=== PATIENT | female | born 1985 | race Caucasian/White ===

== ENCOUNTER 2018-05-03 23:31 | Emergency (ER) | payer SELFPAY ==
[2018-05-04 00:16] LABS: Absolute Lymphocytes (CBC) 2.6 K/uL (0.7-4.9); Absolute Monocytes 0.5 K/uL (0.1-1.3); Absolute Neutrophil 5.2 K/uL (1.8-8.0); Basophils % 0.5 % (0-1.3); Eosinophils % 0.8 % (0-4.4); Hematocrit 36.6 % (36.0-45.0); Lymphocytes % 31.6 % (15.3-44.8); MCH 31.6 pg (27.0-35.0); MCV 92.2 fL (80-100); MPV 8.7 fL (7.6-11.3); Monocytes % 5.5 % (3.3-12.3); RBC Red Blood Cell Count 3.97 M/uL (3.86-4.86)
[2018-05-04 00:20] LABS: Protime INR 0.95
[2018-05-04 00:29] LABS: ALT/SGPT 16 U/L (12-78); AST/SGOT 9 U/L (15-37); Albumin 3.7 g/dL (3.4-5.0); Alkaline Phosphatase 49 U/L (45-117); BUN Blood Urea Nitrogen 9 mg/dL (7-18); Bicarbonate 25 mmol/L (21-32); Bilirubin Direct < 0.1 mg/dL (0-0.2); Bilirubin Total 0.2 mg/dL (0.2-1.0); CKMB Creatine Kinase MB < 1.0 ng/mL (0.3-3.6); Creatine Phosphokinase 65 U/L (26-192); Glucose Level 91 mg/dL (74-106); NT PRO-BNP 120 pg/mL (<125); Potassium 3.6 mmol/L (3.5-5.1); Protein, Total 7.1 g/dL (6.4-8.2); Sodium Level 141 mmol/L (136-145)
[2018-05-04] MEDS ORDERED: KETOROLAC 30 MG/ML INJ ONE (00:39)
--- NOTE | 2018-05-04 01:22 | EDPHYS ---
Physician Documentation [facility] Name: Lavonne Parker Age: 32 yrs Sex: Female : 1985 Arrival Date: 05/03/2018 Time: 23:34 Bed 15 Private MD: ED Physician Sushil Varela HPI: 05/04 00:53 This 32 yrs old Female presents to ER via Ambulatory with complaints of Chest tw4 Pain, L ARM PAIN. 00:53 The patient or guardian reports chest pain that is located primarily in the anterior tw4 chest wall. The pain radiates to the left arm. Associated signs and symptoms: Pertinent positives: shortness of breath. The chest pain is described as aching. Duration: The patient or guardian reports a single episode, that is now resolved. Modifying factors: The symptoms are alleviated by nothing. the symptoms are aggravated by nothing. Severity of pain: At its worst the pain was moderate in the emergency department the pain is unchanged. The patient has not experienced similar symptoms in the past. 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 - Social history:: Smoking status: Patient uses tobacco products, smokes one pack cigarettes per day. - Ebola Screening: : No symptoms or risks identified at this time. ROS: 05/04 00:53 Constitutional: Negative for fever, chills, and weight loss, Eyes: Negative for injury, tw4 pain, redness, and discharge, Respiratory: Negative for shortness of breath, cough, wheezing, and pleuritic chest pain, Abdomen/GI: Negative for abdominal pain, nausea, vomiting, diarrhea, and constipation, Back: Negative for injury and pain, MS/Extremity: Negative for injury and deformity, Skin: Negative for injury, rash, and discoloration, Neuro: Negative for headache, weakness, numbness, tingling, and seizure. Cardiovascular: Positive for chest pain, Negative for edema, orthopnea, palpitations, paroxysmal nocturnal dyspnea. Exam: 00:53 Constitutional: This is a well developed, well nourished patient who is awake, alert, tw4 and in no acute distress. Head/Face: Normocephalic, atraumatic. Chest/axilla: Normal chest wall appearance and motion. Nontender with no deformity. No lesions are appreciated. Respiratory: Lungs have equal breath sounds bilaterally, clear to auscultation and percussion. No rales, rhonchi or wheezes noted. No increased work of breathing, no retractions or nasal flaring. Abdomen/GI: Soft, non-tender, with normal bowel sounds. No distension or tympany. No guarding or rebound. No evidence of tenderness throughout. Back: No spinal tenderness. No costovertebral tenderness. Full range of motion. MS/ Extremity: Pulses equal, no cyanosis. Neurovascular intact. Full, normal range of motion. Neuro: Awake and alert, GCS 15, oriented to person, place, time, and situation. Cranial nerves II-XII grossly intact. Motor strength 5/5 in all extremities. Sensory grossly intact. Cerebellar exam normal. Normal gait. Psych: Awake, alert, with orientation to person, place and time. Behavior, mood, and affect are within normal limits. 00:53 Cardiovascular: Regular rate and rhythm with a normal S1 and S2. No gallops, murmurs, or rubs. Normal PMI, no JVD. No pulse deficits. Vital Signs: 05/03 23:44 BP 130 / 86; Pulse 85; Resp 13; Temp 98.7(O); Pulse Ox 99% on R/A; Weight 54.43 kg; lp1 Height 4 ft. 11 in. (149.86 cm); Pain 7/10; 05/04 00:30 BP 110 / 68; Pulse 59; Resp 14; Pulse Ox 100% on R/A; bs1 01:25 BP 112 / 70; Pulse 61; Resp 16; Temp 98.2(O); Pulse Ox 99% on R/A; Pain 0/10; bs1 05/03 23:44 Body Mass Index 24.24 (54.43 kg, 149.86 cm) lp1 MDM: 05/03 23:41 Patient medically screened. tw4 05/04 00:53 Differential diagnosis: acute pericarditis, coronary artery disease chest wall pain, tw4 esophagitis, gastritis, gastroesophageal reflux disease (GERD), pulmonary embolus, stable angina, thoracic aortic disection. Data reviewed: vital signs, nurses notes. Data interpreted: cafeteria monitor: rhythm is normal sinus rhythm, Pulse oximetry: Interpretation: normal. Counseling: I had a detailed discussion with the patient and/or guardian regarding: the historical points, exam findings, and any diagnostic results supporting the discharge/admit diagnosis, lab results. 05/03 23:42 Order name: Basic Metabolic Panel 05/03 23:42 Order name: CBC with Diff; Complete Time: 00:31 05/04 00:31 Interpretation: Within normal limits. 05/03 23:42 Order name: Ckmb 05/03 23:42 Order name: CPK; Complete Time: 00:31 05/04 00:31 Interpretation: Within normal limits: CPK 65. 05/03 23:42 Order name: LFT's; Complete Time: 00:31 05/04 00:31 Interpretation: Normal except: AST 9. 05/03 23:42 Order name: Magnesium; Complete Time: 00:31 05/04 00:31 Interpretation: Within normal limits: MG 2.0. 05/03 23:42 Order name: NT PRO-BNP; Complete Time: 00:31 05/04 00:31 Interpretation: Within normal limits: NT PRO-BNP 120. 05/03 23:42 Order name: PT-INR; Complete Time: 00:32 05/04 00:32 Interpretation: Within normal limits: PT 11.2. 05/03 23:42 Order name: Ptt, Activated; Complete Time: 00:32 05/04 00:32 Interpretation: Within normal limits: PTT 34.3. 05/03 23:42 Order name: Troponin (emerg Dept Use Only); Complete Time: 00:32 05/04 00:32 Interpretation: Within normal limits: TROPED < 0.02. 05/03 23:42 Order name: XRAY Chest (1 view) 05/03 23:43 Order name: Basic Metabolic Panel; Complete Time: 00:31 EDMS 05/04 00:31 Interpretation: Normal except: CL 111. 05/03 23:43 Order name: CKMB Creatine Kinase MB; Complete Time: 00:32 EDAR 05/04 00:32 Interpretation: Within normal limits: CKMB < 1.0. tw4 05/04 01:02 Order name: Urine Dipstick--Ancillary (enter results) nd 05/03 23:42 Order name: EKG; Complete Time: 23:43 tw4 05/03 23:42 Order name: Cardiac monitoring; Complete Time: 23:55 tw4 05/03 23:42 Order name: EKG - Nurse/Tech; Complete Time: 23:55 tw4 05/03 23:42 Order name: IV Saline Lock; Complete Time: 23:55 tw4 05/03 23:42 Order name: Labs collected and sent; Complete Time: 23:55 tw4 05/03 23:42 Order name: O2 Per Protocol; Complete Time: 23:56 tw4 05/03 23:42 Order name: O2 Sat Monitoring; Complete Time: 23:56 tw4 05/03 23:42 Order name: Urine Dipstick-Ancillary (obtain specimen); Complete Time: 00:49 tw4 EC:21 Rate is 69 beats/min. Rhythm is regular. QRS [place] is Normal. OR interval is normal. QRS tw4 interval is normal. QT interval is normal. No Q waves. T waves are Normal. No ST changes noted. Clinical impression: Normal ECG. Interpreted by me. Reviewed by me. Administered Medications: 00:38 Drug: TORadol 30 mg Route: IVP; Site: right forearm; bs1 00:49 Follow up: Response: No adverse reaction bs1 Disposition: 05/04/18 01:20 Discharged to Home. Impression: Chest pain, unspecified. - Condition is Stable. - Discharge Instructions: Nonspecific Chest Pain, Pain Without a Known Cause. - Prescriptions for Ibuprofen 600 mg Oral Tablet - take 1 tablet by ORAL route every 6 hours As needed take with food; 30 tablet. - Medication Reconciliation Form, Thank You Letter, Antibiotic Education, Prescription Opioid Use form. - Follow up: Private Physician; When: Upon discharge from the Emergency Department; Reason: Further diagnostic work-up, Recheck today's complaints, Continuance of care. - Problem is new. - Symptoms have improved. Signatures: Dispatcher [employer] [facility] Roopa Gupta RN RN lp1 Angy Bolanos RN RN bs1 Sushil Varela MD MD tw4 Corrections: (The following items were deleted from the chart) 01:32 01:20 05/04/2018 01:20 Discharged to Home. Impression: Chest pain, unspecified. bs1 Condition is Stable. Forms are Medication Reconciliation Form, Thank You Letter, Antibiotic Education, Prescription Opioid Use. Follow up: Private Physician; When: Upon discharge from the Emergency Department; Reason: Further diagnostic work-up, Recheck today's complaints, Continuance of care. Problem is new. Symptoms have improved. tw4
--- NOTE | 2018-05-04 01:22 | ER ---
Nurse's Notes [facility] Name: Lavonne Parker Age: 32 yrs Sex: Female : 1985 Arrival Date: 05/03/2018 Time: 23:34 Bed 15 Private MD: Diagnosis: Chest pain, unspecified Presentation: 05/03 23:41 Presenting complaint: Patient states: Chest pain that began at 2130; States pain is lp1 worse when taking a deep breath, radiates to left elbow and feeling "tingling sensation"; Denies any dizziness, shortness of breath. Transition of care: patient was not received from another setting of care. Onset of symptoms was May 03, 2018 at 21:30. Risk Assessment: Do you want to hurt yourself or someone else? Patient reports no desire to harm self or others. Initial Sepsis Screen: Does the patient meet any 2 criteria? No. Patient's initial sepsis screen is negative. Does the patient have a suspected source of infection? No. Patient's initial sepsis screen is negative. Care prior to arrival: None. 23:41 Method Of Arrival: Ambulatory lp1 23:41 Acuity: FABY 3 lp1 23:41 Care prior to arrival: Medication(s) given: BC Powder. 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 - Social history:: Smoking status: Patient uses tobacco products, smokes one pack cigarettes per day. - Ebola Screening: : No symptoms or risks identified at this time. Screenin:46 Abuse screen: Denies threats or abuse. Denies injuries from another. Nutritional lp1 screening: No deficits noted. Tuberculosis screening: No symptoms or risk factors identified. Fall Risk None identified. Assessment: 23:40 General: Appears in no apparent distress. uncomfortable, slender, Behavior is calm, bs1 cooperative, appropriate for age. Pain: Complains of pain in left side of chest Pain radiates to left arm Pain began 2 hours ago. 23:40 Neuro: Level of Consciousness is awake, alert, obeys commands, Oriented to person, bs1 place, time, situation, Appropriate for age Reports tingling/pain to left arm. Denies dizziness, numbness. Cardiovascular: Reports chest pain, Denies nausea, shortness of breath, Heart tones S1 S2 present Capillary refill < 3 seconds Patient's skin is warm and dry. Respiratory: Airway is patent Trachea midline Breath sounds are clear bilaterally. GI: No signs and/or symptoms were reported involving the gastrointestinal system. : No signs and/or symptoms were reported regarding the genitourinary system. EENT: No signs and/or symptoms were reported regarding the EENT system. Derm: Skin is intact. Musculoskeletal: Circulation, motion, and sensation intact. Capillary refill < 3 seconds, Range of motion: intact in all extremities. 05/04 00:30 Reassessment: Patient appears in no apparent distress at this time. Patient and/or bs1 family updated on plan of care and expected duration. Pain level reassessed. Patient is alert, oriented x 3, equal unlabored respirations, skin warm/dry/pink. Pending lab results/xray. 01:30 Reassessment: Patient appears in no apparent distress at this time. Patient and/or bs1 family updated on plan of care and expected duration. Pain level reassessed. Patient is alert, oriented x 3, equal unlabored respirations, skin warm/dry/pink. Patient states understanding of POC/discharge instructions Patient states feeling better. Patient states symptoms have improved. Vital Signs: 05/03 23:44 BP 130 / 86; Pulse 85; Resp 13; Temp 98.7(O); Pulse Ox 99% on R/A; Weight 54.43 kg; lp1 Height 4 ft. 11 in. (149.86 cm); Pain 7/10; 05/04 00:30 BP 110 / 68; Pulse 59; Resp 14; Pulse Ox 100% on R/A; bs1 01:25 BP 112 / 70; Pulse 61; Resp 16; Temp 98.2(O); Pulse Ox 99% on R/A; Pain 0/10; bs1 05/03 23:44 Body Mass Index 24.24 (54.43 kg, 149.86 cm) lp1 ED Course: 05/03 23:34 Patient arrived in ED. al2 23:41 Sushil Varela MD is Attending Physician. tw4 23:44 Triage completed. lp1 23:44 Arm band placed on left wrist. lp1 23:46 Patient has correct armband on for positive identification. Bed in low position. lp1 property assessment monitor on. Pulse ox on. NIBP on. 23:46 EKG done, by ED staff, reviewed by Sushil Varela MD. Patient maintains SpO2 lp1 saturation greater than 95% on room air. 23:52 Inserted saline lock: 20 gauge in right forearm, using aseptic technique. Blood bs1 collected. by me. Flsuhed with 10cc NS. 23:55 Angy Bolanos, RN is Primary Nurse. bs1 05/04 00:08 X-ray completed. Portable x-ray completed in exam room. Patient tolerated procedure kw well. 00:10 XRAY Chest (1 view) In Process Unspecified. EDMS 01:29 No provider procedures requiring assistance completed. IV discontinued, bleeding bs1 controlled, No redness/swelling at site. Pressure dressing applied. Administered Medications: 00:38 Drug: TORadol 30 mg Route: IVP; Site: right forearm; bs1 00:49 Follow up: Response: No adverse reaction bs1 Outcome: 01:20 Discharge ordered by MD. tw4 01:29 Discharged to home ambulatory. bs1 01:29 Condition: stable 01:29 Discharge instructions given to patient, Instructed on discharge instructions, follow up and referral plans. medication usage, Demonstrated understanding of instructions, follow-up care, medications, Prescriptions given X 1. 01:32 Patient left the ED. bs1 Signatures: Dispatcher [employer] [facility] Flora Isaac Laura, RN RN lp1 Angy Bolanos, RN RN bs1 Melisa Herrera al2 Sushil Varela MD MD tw4 Corrections: (The following items were deleted from the chart) 00:13 05/03 23:40 Neuro: Level of Consciousness is awake, alert, obeys commands, Oriented to bs1 person, place, time, situation, Appropriate for age Reports tingling to left arm. bs1 05/04 00:16 05/03 23:40 Pain: Complains of pain in left side of chest Pain radiates to left arm bs1 Pain began 30 min ago. bs1
[2018-05-04 02:13] LABS: Urine Blood 1+ (NEG); Urine Glucose NEGATIVE (NEG); Urine Protein NEGATIVE (NEG); Urine Specific Gravity 1.025 (1.005-1.030)
--- NOTE | 2018-05-04 08:01 | RAD REPORT ---
EXAM DESCRIPTION: Jose A Single View05/04/2018 12:09 am CLINICAL HISTORY: Chest pain COMPARISON: None FINDINGS: The lungs appear clear of acute infiltrate. The heart is normal size IMPRESSION: No acute abnormalities displayed
--- NOTE | 2018-05-04 16:30 | EKG ---
Test Date: 2018-05-03 Test Time: 23:38:58 Paving Supervisor: OTONIEL MEASUREMENT RESULTS: Intervals: Rate: 69 ID: [id number] QRSD: 94 QT: 402 QTc: 430 [place]: P: 57 ID: [id number] QRS: 68 T: 24 INTERPRETIVE STATEMENTS: Normal sinus rhythm Normal ECG No previous ECG available for comparison Electronically Signed On 05-04-18 16:26:25 CDT by Augustus Clayton
== END 2018-05-04 01:32 | disposition home or self-care (01) ==
LOC: ER 23:31
DX: R07.9 Chest pain, unspecified (principal); F17.210 Nicotine dependence, cigarettes, uncomplicated; Z88.0 Allergy status to penicillin; Z88.2 Allergy status to sulfonamides
CPT/HCPCS: 36415; 71045; 80048; 80076; 81003; 82550; 82553; 83735; 83880; 84484; 85025; 85610; 85730; 93005; 96374; 99285